=== PATIENT | male | born 1990 | race Caucasian/White ===

== ENCOUNTER 2016-11-28 17:48 | Emergency (ER) | payer OTHER ==
[2016-11-28] MEDS ORDERED: BENADRYL 50 MG/ML IV ONE (18:10)
[2016-11-28] MEDS ORDERED: Hydromorphone 1 mg/ml Ampule IV ONE (18:10)
[2016-11-28] MEDS ORDERED: CLINDAMYCIN-D5W 900 MG/50 ML*** 50 ML IV ONE ×2 (18:12→18:16)
[2016-11-28] MEDS ORDERED: Sodium Chloride 0.9% 1000 ML 1,000 ML IV SCH (18:15)
[2016-11-28] MEDS ORDERED: Sodium Chloride 0.9% 1000 ML 1,000 ML ONE (18:16)
[2016-11-28] MEDS ORDERED: Hydromorphone 1 mg/ml Ampule ONE (18:16)
[2016-11-28] MEDS ORDERED: BENADRYL 50 MG/ML ONE (18:16)
--- NOTE | 2016-11-28 18:20 | ERPHSYRPT ---
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 fever since yesterday. swelling noted to rt jaw. dental catrachito to rt lower mouth. limited evaluation due to pt states he cannot open his mouth. skin warm and dry. Physician History: CC: mouth pain Hx: 26 y/o with toothache for a few days. It is worse. Fever 102. Was seen at [facility] and sent here to ER as he has trismus and can barely open mouth. No cellulitis. Some lymph nodes enlarged in neck and groin. Some sore throat. No headache. No diff breathing. Has trouble getting comfortable. Used topical ASA without relief. Timing/Duration: gradual onset Severity: severe ENT Location: mouth Allergies/Adverse Reactions: Penicillins Allergy (Verified 11/28/16 18:03) Hives Home Medications: No Home Meds 1 [facility] U[facility] 11/28/16 [History] Hx Tetanus, Diphtheria Vaccination/Date Given: Yes Hx Influenza Vaccination/Date Given: No Hx Pneumococcal Vaccination/Date Given: No Immunizations Up to Date: Yes - Review of Systems Constitutional: Fever, Chills, Malaise Eyes: No Symptoms Ears, Nose, & Throat: Mouth Pain, Mouth Swelling, Throat Pain Respiratory: No Cough, No Dyspnea Cardiac: No Chest Pain Abdominal/Gastrointestinal: No Abdominal Pain, No Nausea, No Vomiting Genitourinary Symptoms: No Dysuria Skin: No Rash Neurological: No Headache All Other Systems: Reviewed and Negative - Past Medical History Pertinent Past Medical History: No Psycho-Social History: Depression - Past Surgical History Past Surgical History: No - Social History Smoking Status: Current every day smoker How long have you smoked: 5 YEARS Exposure to second hand smoke: Yes Drug Use: none Patient Lives Alone: No - Nursing Vital Signs Nursing Vital Signs: Initial Vital Signs Temperature 100.0 F Temperature Source Oral Pulse Rate 90 Respiratory Rate 18 Blood Pressure [Right Arm] 116/59 Pain Intensity 0 - Physical Exam General Appearance: alert Eye Exam: bilateral eye: PERRL, EOMI Nasal Exam: normal inspection Throat Exam: dental tenderness (with caries and borken teeth, worse right l ower jaw tooth), mandibular swelling, moist mucus membranes, pharynx swelling Neck Exam: lymphadenopathy (R), lymphadenopathy (L) Cardiovascular/Respiratory Exam: normal breath sounds, regular rate/rhythm Abdominal Exam: non-tender, soft Neurologic Exam: alert, oriented x 3, cooperative Skin Exam: warm, dry, No rash SpO2 Interpretation: normal SpO2: 98 Oxygen Delivery: Room Air - Course Nursing assessment & vital signs reviewed: Yes Ordered Tests: Active Orders 24 hr Category Date Time Status IV Insertion STAT Care 11/28/16 18:10 Active NECK WITH CONTRAST [CT] Stat Exams 11/28/16 18:43 Taken BMP Stat Lab 11/28/16 18:29 Completed CBC W DIFF Stat Lab 11/28/16 18:29 Completed Lactic Acid Urgent Lab 11/28/16 18:10 Completed Medication Summary Generic Name Dose Route Start Last Admin Trade Name Freq PRN Reason Stop Dose Admin Sodium Chloride 1,000 mls @ 100 mls/hr 11/28/16 18:15 11/28/16 18:18 Sodium Chloride 0.9% 1000 Ml IV 12/28/16 18:14 100 mls/hr .Q10H MONICA Administration Discontinued Medications Generic Name Dose Route Start Last Admin Trade Name Freq PRN Reason Stop Dose Admin Diphenhydramine HCl 25 mg 11/28/16 18:10 11/28/16 18:18 Benadryl 50 Mg/Ml IV 11/28/16 18:11 25 mg STAT ONE Administration Diphenhydramine HCl Confirm 11/28/16 18:16 Benadryl 50 Mg/Ml Administered 11/28/16 18:17 Dose 50 mg .ROUTE .STK-MED ONE Hydromorphone HCl 1 mg 11/28/16 18:10 11/28/16 18:18 Hydromorphone 1 Mg/Ml Ampule IV 11/28/16 18:11 1 mg STAT ONE Administration Hydromorphone HCl Confirm 11/28/16 18:16 Hydromorphone 1 Mg/Ml Ampule Administered 11/28/16 18:17 Dose 1 mg .ROUTE .STK-MED ONE Clindamycin HCl/Dextrose 50 mls @ 100 mls/hr 11/28/16 18:12 11/28/16 18:17 Clindamycin-D5w 900 Mg/50 Ml IV 11/28/16 18:41 100 mls/hr STAT ONE Administration Clindamycin HCl/Dextrose Confirm 11/28/16 18:16 Clindamycin-D5w 900 Mg/50 Ml Administered 11/28/16 18:17 Dose 50 mls @ ud IV .STK-MED ONE Sodium Chloride Confirm 11/28/16 18:16 Sodium Chloride 0.9% 1000 Ml Administered 11/28/16 18:17 Dose 1,000 mls @ ud .ROUTE .STK-MED ONE Lab/Rad Data: Laboratory Result Diagrams 11/28/16 18:29 11/28/16 18:29 Laboratory Results 11/28/16 11/28/16 11/28/16 Range/Units 18:29 18:29 18:10 WBC 10.9 H (4.0-10.5) K/mm3 RBC 4.67 (4.1-5.6) M/mm3 Hgb 13.7 (12.5-18.0) gm/dl Hct 40.7 L (42-50) % MCV 87.2 (78-100) fl MCH 29.3 (26-32) pg MCHC 33.7 (32-36) g/dl RDW 13.2 (11.5-14.0) % Plt Count 164 (150-450) K/mm3 MPV 9.8 H (6-9.5) fl Gran % 75.1 H (36.0-66.0) % Lymphocytes % 11.2 L (24.0-44.0) % Monocytes % 13.2 H (0.0-12.0) % Eosinophils % 0.3 (0.00-5.0) % Basophils % 0.2 (0.0-0.4) % Basophils # 0.02 (0-0.4) Sodium 139 (136-145) mEq/L Potassium 3.5 (3.5-5.1) mEq/L Chloride 102 (98-107) mEq/L Carbon Dioxide 25.5 (21-32) mEq/L Anion Gap 15.2 H (5-15) MEQ/L BUN 11 (9-20) mg/dL Creatinine 0.88 (0.55-1.30) mg/dl Estimated GFR > 60 ML/MIN Glucose 81 (70-110) MG/DL Lactic Acid 0.7 (0.4-2.0) Calcium 9.2 (8.5-10.1) mg/dL - Progress Progress Note: 11/28/16 18:20 Due to fever and sent here form ENFORCEMENT MANAGER with trismus will get CT to rule out lisa angina. 11/28/16 20:09 CT neck: octavio 8:01 PM 11/28/2016: No comps. R submandibular cellulitis w/ multiple prominent cm & subcm reactive lymph nodes. Enlarged tonsils narrows oropharynx. No abscess or air collection. Multiple B/L molar dental caries. 11/28/16 20:13 Explained test results and need for dental follow up. Will release with instructions. Counseled pt/family regarding: lab results, diagnosis, need for follow-up, rad results - Departure Time of Disposition: 20:14 Departure Disposition: Home Clinical Impression: Dental caries, Cellulitis of submandibular region Condition: Stable Critical Care Time: No Referrals: ROSANA CALABRESE, MOTOR BRAKEMAN [Primary Care Provider] - Instructions: Tooth Decay Additional Instructions: Warm compresses off and on. Rx clindamicin. Rx ibuprofen. See dentist as soon as possible. Return for problems or concerns. Prescriptions: Ibuprofen 600 mg PO Q6H PRN PRN #24 tablet PRN Reason: Pain Tramadol HCl [Ultram] 1 tab PO Q6H PRN PRN #15 tablet PRN Reason: pain Clindamycin HCl 1 cap PO QID #40 capsule
[2016-11-28 18:39] LABS: BASOPHIL % 0.2 % (0.0-0.4); Eosinophil % 0.3 % (0.00-5.0); Granulocytes % 75.1 % (36.0-66.0); Lymphocytes % 11.2 % (24.0-44.0); Mean Cell Volume 87.2 fl (78-100); Mean Corpuscular Hemoglobin 29.3 pg (26-32); Mean Platelet Volume 9.8 fl (6-9.5); Monocytes % 13.2 % (0.0-12.0); Platelet Count 164 K/mm3 (150-450); Red Blood Count 4.67 M/mm3 (4.1-5.6); Red Cell Distribution Width 13.2 % (11.5-14.0); White Blood Count 10.9 K/mm3 (4.0-10.5)
[2016-11-28 19:10] LABS: ANION GAP 15.2 MEQ/L (5-15); BLOOD UREA NITROGEN 11 mg/dL (9-20); CHLORIDE 102 mEq/L (98-107); Carbon Dioxide 25.5 mEq/L (21-32); Glucose 81 MG/DL (70-110); Potassium 3.5 mEq/L (3.5-5.1); SODIUM 139 mEq/L (136-145)
[2016-11-28 20:11] VITALS: O2SAT 98
[2016-11-28 20:26] VITALS: BP 138/82; PULSE 97
--- NOTE | 2016-11-29 08:48 | XRAY ---
Indication: Right jaw abscess 2 days ago. Fever and swelling. Multiple contiguous axial images obtained through the neck using 60 cc Isovue 370 contrast. Comparison: None There is mild subcutaneous soft tissue induration in the right submandibular region favoring cellulitis. Multiple adjacent centimeter and subcentimeter reactive cervical lymph nodes. No suspicious walled off fluid collection/abscess. Mountain tonsils are enlarged narrowing the oropharynx, right greater than left. There are multiple bilateral dental caries. No acute fracture or suspicious bony lesions. Major arteries and veins are normal in course and caliber. Parotid and submandibular glands are bilaterally symmetric. Remaining visualized soft tissues including base of the brain and lung apices are unremarkable. Visualized paranasal sinuses and mastoid air cells are pneumatized and clear. Impression: Right submandibular cellulitis with reactive nodes. Enlarged tonsils narrowing the oropharynx. No abscess. Incidental multiple dental caries. CT DI 22.36
== END 2016-11-28 20:36 | disposition home or self-care (01) ==
LOC: ED 17:48
DX: K12.2 Cellulitis and abscess of mouth (principal); R50.9 Fever, unspecified
CPT/HCPCS: 36000; 36415; 70491; 80048; 83605; 85025; 96360; 96365; 96374; 96375; 99284; J1170; J1200

== ENCOUNTER 2017-01-01 15:10 | Emergency (ER) | payer OTHER ==
[2017-01-01] MEDS ORDERED: Adacel Vial IM ONE ×2 (15:21→15:25)
[2017-01-01] MEDS ORDERED: Marcaine 0.5% SDV 10 ML IJ ONE (15:21)
[2017-01-01] MEDS ORDERED: BACIGUENT PACKET TP ONE (15:21)
[2017-01-01 15:22] VITALS: O2SAT 100
--- NOTE | 2017-01-01 15:24 | ERPHSYRPT ---
- History of Present Illness Time Seen by Provider: 01/01/17 15:17 Source: patient, family (girlfriend) Physician History: CC: left thumb injury Hx: 26 y/o healthy male patient of Dr Hernandez was working at [employer]. Something slipped while working on a mine tire and he injured left thumb. Tore off the left thumb nail. Cut to nail bed. Painful. No other injuries. Uncertain last tetanus vaccine. Occurred: just prior to arrival Severity of Pain-Max: moderate Severity of Pain-Current: moderate Extremities Pain Location: thumb: left Allergies/Adverse Reactions: Penicillins Allergy (Verified 01/01/17 15:22) Hives Home Medications: No Home Meds 1 [facility] UD 11/28/16 [History] Hx Tetanus, Diphtheria Vaccination/Date Given: Yes Hx Influenza Vaccination/Date Given: No Hx Pneumococcal Vaccination/Date Given: No - Review of Systems Constitutional: No Symptoms Neurological: No Focal Weakness, No Parasthesia - Past Medical History Pertinent Past Medical History: No Psycho-Social History: Depression - Past Surgical History Past Surgical History: No - Social History Smoking Status: Current every day smoker How long have you smoked: 5 YEARS Exposure to second hand smoke: Yes Drug Use: none Patient Lives Alone: No - Nursing Vital Signs Nursing Vital Signs: Initial Vital Signs Temperature 98.0 F Temperature Source Oral Pulse Rate 95 Respiratory Rate 22 Blood Pressure [] 118/77 Pain Intensity 8 - Physical Exam General Appearance: alert Eyes, Ears, Nose, Throat Exam: moist mucous membranes Neck Exam: supple Cardiovascular/Respiratory Exam: regular rate/rhythm Neuro/Tendon Exam: normal sensation, normal motor functions Mental Status Exam: alert, oriented x 3, cooperative Skin Exam: warm, dry Comments: Left thumb distal tender, nail bed laceration, nail has been completely avulsed 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 ROM intact. No other hand tenderness. Good cap refill. Procedures - Laceration/Wound Repair left thumb nail bed Wound Location: Left Wound Length (cm): 1 Wound's Depth, Shape: stellate Wound Explored: no foreign body noted Irrigated: Yes Hibiclens Prep: Yes Anesthesia: digital block (left thumb), marcaine 0.5 Volume Anesthetic (ccs): 4 Wound Repaired With: sutures Suture Size/Type: 5-0, vicryl Number of Sutures: 5 Sterile Dressing Applied?: Yes - Course Nursing assessment & vital signs reviewed: Yes - Radiology Exams left hand X-ray Interpretation: Teleradiologist Report, No Fracture Ordered Tests: Active Orders 24 hr Category Date Time Status Prepare for Sutures STAT Care 01/01/17 15:52 Active Sutures STAT Care 01/01/17 15:53 Active Wound Care STAT Care 01/01/17 15:21 Active HAND (MINIMUM 3 VIEWS) Stat Exams 01/01/17 15:21 Completed Medication Summary Discontinued Medications Generic Name Dose Route Start Last Admin Trade Name Sirena PRN Reason Stop Dose Admin Bacitracin 0.9 gm 01/01/17 15:21 01/01/17 15:27 Baciguent Packet TP 01/01/17 15:22 0.9 gm STAT ONE Administration Bacitracin Confirm 01/01/17 15:25 Baciguent Packet Administered 01/01/17 15:26 Dose 1 gm .ROUTE .STK-MED ONE Bupivacaine HCl 5 ml 01/01/17 15:21 01/01/17 15:27 Marcaine 0.5% Sdv 10 Ml IJ 01/01/17 15:22 5 ml STAT ONE Administration Bupivacaine HCl Confirm 01/01/17 15:25 Marcaine 0.5% Sdv 10 Ml Administered 01/01/17 15:26 Dose 10 ml .ROUTE .STK-MED ONE Diphtheria/Tetanus/Acell Pertussis 0.5 ml 01/01/17 15:21 01/01/17 15:27 Adacel Vial IM 01/01/17 15:22 0.5 ml .ONCE ONE Administration Diphtheria/Tetanus/Acell Pertussis Confirm 01/01/17 15:25 Adacel Vial Administered 01/01/17 15:26 Dose 0.5 ml IM .STK-MED ONE - Progress Progress Note: 01/01/17 16:45 Pt states not workers comp injury. Will dress wound and follow up with Dr Hernandez advised in 2 days for wound check. Counseled pt/family regarding: diagnosis, need for follow-up, rad results - Departure Time of Disposition: 16:45 Departure Disposition: Home Clinical Impression: left thumb nail avulsion, left thumb nailbed laceration Condition: Stable Critical Care Time: No Referrals: SARITA HERNANDEZ [ACTIVE STAFF] - Instructions: Laceration Repair -- Finger, Care for a Laceration After Repair Additional Instructions: Elevate. Keep wound clean and dry. Rx keflex. Rx norco- no driving or operating machinery. Follow up with Dr Hernandez in 1-2 days for wound check. Prescriptions: Hydrocodone Bit/Acetaminophen [[place] 5-325 Tablet] 1 each PO Q6H PRN PRN #15 tablet PRN Reason: Pain Cephalexin Mh 500 mg [Keflex 500 mg] 1 cap PO QID #20 capsule
[2017-01-01] MEDS ORDERED: BACIGUENT PACKET ONE (15:25)
[2017-01-01] MEDS ORDERED: Marcaine 0.5% SDV 10 ML ONE (15:25)
--- NOTE | 2017-01-01 15:49 | XRAY ---
Indication: Thumb pain following crush injury. Comparison: None 3 views of the left hand obtained. No bony, articular, or soft tissue abnormalities.
[2017-01-01 17:14] VITALS: BP 116/77; PULSE 66
== END 2017-01-01 17:14 | disposition home or self-care (01) ==
LOC: ED 15:10
PROC: 0HQGXZZ Repair Left Hand Skin, External Approach (ICD-10-PCS; principal; 2017-01-01)
DX: S61.102A Unspecified open wound of left thumb with damage to nail, initial encounter (principal); W22.8XXA Striking against or struck by other objects, initial encounter; Y93.89 Activity, other specified; Y92.69 Other specified industrial and construction area as the place of occurrence of the external cause
CPT/HCPCS: 12001; 73130; 90471; 90715; 99284; A9270-GY

== ENCOUNTER 2020-07-31 17:36 | Emergency (ER) | payer BC ==
--- NOTE | 2020-07-31 18:01 | ERPHSYRPT ---
- History of Present Illness Time Seen by Provider: 07/31/20 17:41 Source: patient Exam Limitations: no limitations Patient Subjective Stated Complaint: PT WAS ON TRAMPOLINE ABOUT 2 HOURS AGO AND LANDED WRONG ON RIGHT ANKLE, Triage Nursing Assessment: PT ALERT, WALKED IN WITH LIMP BRACE TO RIGHT ANKLE, SLIGHT SWELLING TO ANKLE Physician History: Right foot injury. Patient has right foot injury from trampoline. Occurred just prior to arrival. Patient fell off a trampoline, hit his right foot. No other injuries no calf pain, tib-fib pain. Location: right foot Quality: sharp Radiation: none Severity: moderate Duration: just RE DYE HAND Timing: after injury Modifying factors/associated signs and symptoms: none tried Allergies/Adverse Reactions: Penicillins Allergy (Verified 07/31/20 17:44) Hives Home Medications: No Home Meds [No Home Meds] 1 [facility] UD 11/28/16 [History] Hx Tetanus, Diphtheria Vaccination/Date Given: No Hx Influenza Vaccination/Date Given: No Hx Pneumococcal Vaccination/Date Given: No Immunizations Up to Date: Yes Travel Risk - International Travel Have you traveled outside of the country in past 3 weeks: No - Coronavirus Screening Are you exhibiting any of the following symptoms?: No Close contact with a COVID-19 positive Pt in past 14-21 Days: No - Review of Systems Constitutional: No Fever, No Chills Eyes: No Symptoms Ears, Nose, & Throat: No Symptoms Respiratory: No Cough, No Dyspnea Cardiac: No Chest Pain, No Edema, No Syncope Abdominal/Gastrointestinal: No Abdominal Pain, No Nausea, No Vomiting, No Diarrhea Genitourinary Symptoms: No Dysuria Musculoskeletal: Other (right foot pain), No Back Pain, No Neck Pain Skin: No Rash Neurological: No Dizziness, No Focal Weakness, No Sensory Changes Psychological: No Symptoms Endocrine: No Symptoms All Other Systems: Reviewed and Negative - Past Medical History Pertinent Past Medical History: No Psycho-Social History: Depression - Past Surgical History Past Surgical History: No - Social History Smoking Status: Never smoker How long have you smoked: 5 YEARS Exposure to second hand smoke: No Drug Use: marijuana Patient Lives Alone: No - Nursing Vital Signs Nursing Vital Signs: Pain Scale Pain Intensity 6 - Physical Exam General Appearance: no apparent distress, alert Eye Exam: PERRL/EOMI, eyes nml inspection Ears, Nose, Throat Exam: normal ENT inspection, TMs normal, pharynx normal, moist mucous membranes Neck Exam: normal inspection, non-tender, supple, full range of motion Respiratory Exam: normal breath sounds, lungs clear, No respiratory distress Cardiovascular Exam: regular rate/rhythm, normal heart sounds, normal peripheral pulses Gastrointestinal/Abdomen Exam: soft, normal bowel sounds, No tenderness, No mass Back Exam: normal inspection, normal range of motion, No CVA tenderness, No vertebral tenderness Extremity Exam: normal inspection, normal range of motion, pelvis stable, other (Right foot pain. Full range of motion. No deformity. No obvious deformity, sensation intact, 2+ capillary refill, 2 point tactile discrimination intact. 5 out of 5) Neurologic Exam: alert, oriented x 3, cooperative, normal mood/affect, nml cerebellar function, nml station & gait, sensation nml, No motor deficits Skin Exam: normal color, warm, dry, No rash Lymphatic Exam: No adenopathy Ordered Tests: Active Orders 24 hr Category Date Time Status FOOT (MINIMUM 3 VIEWS) Stat Exams 07/31/20 18:26 Taken - Progress Progress Note: 07/31/20 19:05 No obvious fracture on x-ray my read. Patient will need a repeat x-ray in 1 week if pain continues. Patient will need continued close follow-up. Splinting, rest, ice, ibuprofen. Return here for any new or changing symptoms. Plan of care was discussed with patient and all questions answered. The patient is agreeable to be discharged home and both verbal and printed discharge instructions were prov ided.The patient agreed to seek outpatient follow up as discussed. The patient was given strict instructions to return to the emergency department for worsening symptoms or any other emergent concerns. The patient verbalized understanding. - Departure Departure Disposition: Home Clinical Impression: Right foot sprain Condition: Stable Critical Care Time: No Referrals: ROSANA CALABRESE, ARTIST SUSPECT [Primary Care Provider] - Instructions: Ankle Sprain (DC) Additional Instructions: See your PCP next week for repeat ankle XR and follow-up with PCP
--- NOTE | 2020-07-31 20:15 | XRAY ---
Indication: Heel pain following trampoline injury. Comparison: None 3 nonweightbearing views right foot obtained. No bony, articular, or soft tissue abnormalities.
== END 2020-07-31 19:06 | disposition home or self-care (01) ==
LOC: ED 17:36
DX: S93.601A Unspecified sprain of right foot, initial encounter (principal); X50.1XXA Overexertion from prolonged static or awkward postures, initial encounter; Y93.44 Activity, trampolining; Y92.89 Other specified places as the place of occurrence of the external cause; M25.471 Effusion, right ankle; M79.671 Pain in right foot
CPT/HCPCS: 73630; 99283